=== PATIENT | male | born 1935 ===

== ENCOUNTER 2021-06-26 14:28 | Day surgery (SDC) | payer MEDICARE ==
[2021-06-26] VITALS (11 sets, daily range): BP systolic 108–151; BP diastolic 49–65; PULSE 70–84; TEMP 98.3–98.4
[~2021-06-26] VITALS: Ht 177.8 cm; Wt 75.0 kg
[2021-06-26] MEDS ORDERED: ASPIRIN E.C. 8181 MG PO (14:57)
[2021-06-26] MEDS ORDERED: CIPRO 500MG TA500 MG (14:58)
[2021-06-26] MEDS ORDERED: TYLENOL 325MG325 MG PO (14:59)
[2021-06-26] MEDS ORDERED: TESSALON P100 MG/CAP PO (15:00)
[2021-06-26] MEDS ORDERED: VITAMINC1000TA PO (15:00)
[2021-06-26] MEDS ORDERED: COMBIGAN 0.2%-0.5 ML OP (15:01)
[2021-06-26] MEDS ORDERED: CALCIUM 600 MG1 EAC2 PO (15:02)
[2021-06-26] MEDS ORDERED: B-121000 MCG PO (15:02)
[2021-06-26] MEDS ORDERED: GLUCOTROL 5M5 MG/TAB PO (15:03)
[2021-06-26] MEDS ORDERED: FERROUSAL325 MG PO (15:03)
[2021-06-26] MEDS ORDERED: DULCOLAX STOOL100 MG PO (15:03)
[2021-06-26] MEDS ORDERED: XALATAN EYE DROPS OP (15:04)
[2021-06-26] MEDS ORDERED: MELATIN 3 MG-11 TAB PO (15:05)
[2021-06-26] MEDS ORDERED: LUTEIN20 M1 PO (15:05)
[2021-06-26] MEDS ORDERED: GLUCOPHAGE1000 MG PO (15:06)
[2021-06-26] MEDS ORDERED: MIRALAX PA17 GM/Dose (15:06)
[2021-06-26] MEDS ORDERED: OMEGA-31 SGL PO (15:06)
[2021-06-26] MEDS ORDERED: ZOCOR 20MG20 MG PO (15:07)
[2021-06-26] MEDS ORDERED: ALTACE 5MG5 MG PO (15:07)
[2021-06-26] MEDS ORDERED: ZOLOFT 50MG50 MG PO (15:07)
[2021-06-26] MEDS ORDERED: FLOMAX 0.40.4 MG/CAP PO (15:08)
[2021-06-27] VITALS (7 sets, daily range): BP systolic 112–134; BP diastolic 48–89; PULSE 68–95; TEMP 97.7–98
[2021-06-27 05:42] LABS: BASO % 0.2 % (0.0-2.0); EOS % 0.2 % (0.0-4.0); GRAN # 7.4 K/mm3 (1.4-6.5); GRAN % 79.7 % (42.2-75.2); LYMPH # 1.2 K/mm3 (1.2-3.4); LYMPH % 13.2 % (20.0-51.0); MEAN CELL VOLUME 95 fl (80.0-100.0); MEAN CORPUSCULAR HGB CONC 34 g/dl (33.0-37.0); MEAN PLATELET VOLUME 10.1 fl (7.4-10.4); MONO # 0.6 K/mm3 (0.1-0.6); MONO % 6.2 % (1.7-9.3); PLATELET COUNT 135 K/mm3 (130-400); RED BLOOD COUNT 2.75 M/mm3 (4.20-5.60); REDCELL DISTRIBUTION WIDTH-CV 13.9 % (11.5-14.5)
[2021-06-27 06:02] LABS: HEMATOCRIT 26.2 % (42.0-52.0); HEMOGLOBIN 8.8 g/dl (13.5-18.0); MEAN CORPUSCULAR HEMOGLOBIN 32 pg (27-31)
--- NOTE | 2021-06-27 11:21 | NUR ---
Initial visit; Patient thanked Librarian Helper for looking in on him and offering God's blessings and to keep him in her prayers.
--- NOTE | 2021-06-27 14:27 | NUR ---
PATIENT STABLE THROUGH OUT THIS SHIFT. VERY PLEASANT. GOOD FOOD AND FLUID INTAKE. DENIES PAIN AT THIS TIME. CBI DRAINING WELL. HAD TO BE IRRIGATED ONCE THIS SHIFT DUE TO CLOT. CONTINENT. CONFUSED AT TIMES. OVER ALL DOING WELL
--- NOTE | 2021-06-27 14:43 | NUR ---
Jaiden met with met to complete intake. Pt lives at [facility] in [place]. He has lived there for 16 months. He reports he has son in [place] and daughter. NK is Shilpi [phone]. Pt reports indpendnent on all ADLS and does a cane, sometimes. PCP is evelina Millan and rozina with [facility]. DC: return back to [facility].
--- NOTE | 2021-06-27 18:36 | NUR ---
Pt remains intermittently pleasantly confused. CBI infusing quickly, no further clotting at this time. Pt denies any pain at this time. Fall precautions in place.
[2021-06-28 00:30] VITALS: BP 126/61; PULSE 74; TEMP 97.4
[2021-06-28 04:21] VITALS: BP 126/64; PULSE 78; TEMP 97.4
[2021-06-28 07:08] VITALS: BP 117/50; PULSE 97; TEMP 97.5
--- NOTE | 2021-06-28 08:36 | NUR ---
PT ASSESSED. NO COMPLAINTS OF PAIN OR DYSPNEA. NO SIGNS OR SYMPTOMS OF DISTRESS. CALL LIGHT WITHIN REACH.
[2021-06-28 11:33] VITALS: BP 142/81; PULSE 74; TEMP 97.4
--- NOTE | 2021-06-28 16:19 | NUR ---
PT DISCHARGE TEACHING COMPLETE. INFOMRATION GIVEN ABOUT MEDICATIONS AND FOLLOW UP APPOINTMENTS. NO OTHER QUESTIONS AT THIS TIME. IV REMOVED.
--- NOTE | 2021-06-28 16:28 | NUR ---
PT ESCORTED OUT BY [facility]
== END 2021-06-28 16:28 | disposition home or self-care (01) ==
LOC: SDCO 14:28 → SURG 14:28 → SDCO 16:00
PROVIDERS: Urology
DX: N40.1 Benign prostatic hyperplasia with lower urinary tract symptoms (principal); R31.0 Gross hematuria; E11.40 Type 2 diabetes mellitus with diabetic neuropathy, unspecified; Z92.3 Personal history of irradiation; Z90.79 Acquired absence of other genital organ(s)
CPT/HCPCS: OP; J0690; J2405; J2704; J3010; J3480